=== PATIENT | female | born 2000 ===

== ENCOUNTER 2024-12-06 20:43 | Emergency (ER) | payer MEDICAID, OTHER | END 2024-12-06 23:00 | disposition home or self-care (01) | LOC: FB.ED 20:43 | DX: T14.8XXA Other injury of unspecified body region, initial encounter (principal); R07.89 Other chest pain; M54.2 Cervicalgia; Z88.0 Allergy status to penicillin; Z88.1 Allergy status to other antibiotic agents; Z88.8 Allergy status to other drugs, medicaments and biological substances; Z79.899 Other long term (current) drug therapy; Y04.8XXA Assault by other bodily force, initial encounter; Y93.89 Activity, other specified | CPT/HCPCS: 70450; 99284; A9270; 99283 ==